=== PATIENT | male | born 1990 | race Hispanic/Latino ===

== ENCOUNTER → 2023-08-27 | Emergency (ER) | payer BC ==
[~2023-08-27] MED LIST: ACETAMINOPHEN 500 MG TAB ONE; IBUPROFEN 400 MG TAB ONE; LIDOCAINE 1% 20 ML MDV ONE
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
[2023-08-27 08:22] VITALS: BP 109/55; TEMP 98.3; O2SAT 98
== END ==
LOC: ER 04:33
PROC: 0HQ1XZZ Repair Face Skin, External Approach (ICD-10-PCS; principal; 2023-08-27)
DX: S01.511A Laceration without foreign body of lip, initial encounter (principal); S01.512A Laceration without foreign body of oral cavity, initial encounter
CPT/HCPCS: 12014; J2001; 99284